=== PATIENT | male | born 1945 | race African-American/Black ===

== ENCOUNTER 2019-05-07 19:05 | Inpatient (IN) | payer OTHER ==
[~2019-05-07 19:05] MED LIST: Iopamidol-370 76% 500 ML 1 ML ONE
[2019-05-07 20:16] LABS: #Eosinphils 0.1 thou/uL (0.0-0.7); #Lymphocytes 1.1 thou/uL (1.20-3.40); #Monocytes 0.4 thou/uL (0.11-0.59); #Neutrophils 5.2 thou/uL (1.40-6.50); %Basophils 0.3 % (0.0-1.0); %Eosinophils 1.6 % (0.0-10.0); %Lymphocytes 15.3 % (21.0-51.0); %Monocytes 6.3 % (0.0-10.0); %Neutrophils 76.5 % (42.0-75.0); Hemoglobin 15.9 g/dL (14.0-18.0); Mean Corpuscular HGB CONC 31.3 g/dL (32.0-36.0); Mean Corpuscular Volume 92.5 fL (78.0-98.0); Platelet Count 189 thou/uL (130-400); RBC Distribution Width 13.7 % (11.5-14.5); Red Blood Cell (RBC) Count 5.48 mill/uL (4.70-6.10); White Blood Cell (WBC) Count 6.9 thou/uL (4.8-10.8)
[2019-05-07 20:33] LABS: ALT (SGPT) 11 U/L (8-55); AST (SGOT) 19 U/L (5-34); Albumin 3.9 g/dL (3.4-4.8); Alkaline Phosphatase 106 U/L (40-110); Anion Gap 12 mmol/L (10-20); BUN (Urea Nitrogen) 15 mg/dL (8.4-25.7); Bilirubin, Total 0.8 mg/dL (0.2-1.2); Calc. Creatinine Clearance 0 mL/min (70-130); Calcium 10.5 mg/dL (7.8-10.44); Carbon Dioxide 21 mmol/L (23-31); Chloride 107 mmol/L (98-107); Estimated GFR-MDRD 77; Glucose 109 mg/dL (83-110); Potassium 4.4 mmol/L (3.5-5.1); Protein, Total 7.9 g/dL (5.8-8.1); Sodium 136 mmol/L (136-145)
[2019-05-07] MEDS ORDERED: Ondansetron PF 4 MG/2 ML Vial ONE (20:55)
--- NOTE | 2019-05-07 21:21 | CT ---
CT Abdomen Pelvis W Con History: Right lower quadrant pain Comparison: None. Findings: Lung bases are clear. No pericardial effusion. Mild bilateral gynecomastia. Numerous hypodensities of the liver likely cysts. Prior cholecystectomy. There is a ovoid 6 mm lobule of fat within the pancreatic head. Multiple calcifications of the spleen which has a lobular contour. No hydronephrosis. Aortic contour is nonaneurysmal. There is a large right sided inguinal hernia containing sigmoid colo n with moderate distention of the large and small bowel. There is fluid within the right-sided hernia sac which has a relatively narrow neck. Small fluid containing left indirect inguinal hernia. Old compression deformity superior endplate of L3 with 40% superior endplate height loss of 20% anter ior vertebral body height loss. Mild demineralization. Impression: 1. Partially obstructive sigmoid colon containing right indirect inguinal hernia with fluid within th e hernia sac and subsequent large and small bowel dilatation. Surgical consultation is advised. 2. Numerous hypodensities within the liver suggestive of cysts. 3. Lobular contour of the spleen likely sequelae of prior trauma. 4. Small fluid containing left sided indirect inguinal hernia.
[2019-05-07 21:29] LABS: CKMB 3.8 ng/mL (0-6.6)
[2019-05-07] MEDS ORDERED: Morphine 4 MG/ML VIAL ONE (22:17)
[2019-05-07] MEDS ORDERED: Nitroglycerin 2% Ointment 1 INCH/1 GM Packet ONE (23:21)
--- NOTE | 2019-05-07 23:41 | RAD ---
XR Chest 1 View Portable History: Pain Comparison: None. Findings: Heart size is enlarged. Mild pulmonary edema. No pneumothorax. Likely trace effusions. No acute osseous abnormality. Occluded device projects over the left atrial appendage. There is contrast within the renal collecting systems. Impression: Findings of mild decompensated congestive heart failure.
[2019-05-08 00:16] LABS: CKMB 4.2 ng/mL (0-6.6)
[2019-05-08] MEDS ORDERED: Aspirin Chewable 81 MG TAB ONE (00:22)
[2019-05-08 03:23] LABS: Troponin I 0.029 ng/mL (< 0.028)
[2019-05-08] MEDS ORDERED: Morphine 2 MG/ML SYRINGE ONE (09:50)
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
[2019-05-08] MEDS ORDERED: Ondansetron PF 4 MG/2 ML Vial IVP PRN (12:14)
[2019-05-08 14:57] VITALS: BMI 23.6
[2019-05-08] MEDS ORDERED: Furosemide 20 MG/2 ML VIAL SLOW IVP SCH (19:00)
[2019-05-08] MEDS: Carvedilol 25 MG TAB PO SCH (20:09)
[2019-05-08] MEDS: Docusate 100 MG CAP PO SCH (20:09)
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
[2019-05-09 05:19] LABS: #Basophils 0.1 thou/uL (0.0-0.2); #Eosinphils 0.2 thou/uL (0.0-0.7); #Lymphocytes 1.2 thou/uL (1.20-3.40); #Monocytes 0.3 thou/uL (0.11-0.59); %Basophils 1.1 % (0.0-1.0); %Eosinophils 2.7 % (0.0-10.0); %Lymphocytes 21.1 % (21.0-51.0); %Monocytes 5.7 % (0.0-10.0); %Neutrophils 69.5 % (42.0-75.0); Hemoglobin 14.6 g/dL (14.0-18.0); Mean Corpuscular Hemoglobin 28.4 pg (27.0-31.0); Mean Corpuscular Volume 91.6 fL (78.0-98.0); Mean Platelet Volume 8.2 fL (7.4-10.4); Platelet Count 169 thou/uL (130-400); RBC Distribution Width 13.7 % (11.5-14.5); Red Blood Cell (RBC) Count 5.13 mill/uL (4.70-6.10); White Blood Cell (WBC) Count 5.8 thou/uL (4.8-10.8)
[2019-05-09 05:21] LABS: Anion Gap 10 mmol/L (10-20); BUN (Urea Nitrogen) 23 mg/dL (8.4-25.7); Calc. Creatinine Clearance 64 mL/min (70-130); Calcium 9.4 mg/dL (7.8-10.44); Carbon Dioxide 24 mmol/L (23-31); Chloride 107 mmol/L (98-107); Estimated GFR-MDRD 83; Glucose 82 mg/dL (83-110); Sodium 137 mmol/L (136-145)
[2019-05-09 05:26] LABS: Troponin I 0.028 ng/mL (< 0.028)
[2019-05-09] MEDS ORDERED: Furosemide 20 MG/2 ML VIAL SLOW IVP SCH (06:00)
[2019-05-09] MEDS ORDERED: Regadenoson 0.4 MG/5 ML SYRINGE ONE (09:01)
--- NOTE | 2019-05-09 09:12 | PRG ---
DATE OF SERVICE: 05/09/2019 SUBJECTIVE: Mr. Medellin is feeling well. No chest pain or pressure. OBJECTIVE: VITAL SIGNS: Blood pressure 178/106, pulse 60 and it is regular. LUNGS: Clear. CARDIAC: Normal S1, normal S2. ABDOMEN: Soft and nontender. The patient is completely unclear about any of his past history. He initially told me he had been in [place] in the hospital, then he later told me he had not and he said it is a few weeks ago, then a few years ago, then he says he is not sure if he has ever been there. The patient's troponin is 0.028. ASSESSMENT: 1. Increased troponin, probably demand ischemia. 2. May well have underlying coronary artery disease. 3. Hypertension. PLAN: 1. Stress test and echo. 2. Trying to get some records from [place] to see if that can be obtained. Job ID: [id number]
[2019-05-09] MEDS: Docusate 100 MG CAP PO SCH ×2 (09:18→20:46)
[2019-05-09] MEDS: Lisinopril 20 MG TAB PO SCH (09:18)
[2019-05-09] MEDS: Hydrochlorothiazide 25 MG TAB PO SCH (09:18)
[2019-05-09] MEDS: Aspirin 81 mg Enteric Coated Tablet PO SCH (09:19)
[2019-05-09] MEDS: Atorvastatin Calcium 40 MG TAB PO SCH (09:19)
[2019-05-09] MEDS: Amlodipine 5 MG TAB PO SCH (10:13)
[2019-05-09] MEDS: Clopidogrel Bisulfate 75 MG TAB PO SCH (10:13)
--- NOTE | 2019-05-09 15:04 | NM ---
EXAM: CARDIAC SPECT HISTORY: Chest pain, atrial fibrillation, hypertension, asthma, stroke. Preop evaluation TECHNIQUE: A myocardial perfusion scan was performed using the single isotope 1 day protocol with phu hnetium 99m sestamibi. [10 mCi] was injected intravenously for the rest exam followed by 30 mCi for the stress study. Pharmacologic stress with Lexiscan was monitored and interpreted by Dr. Weston FINDINGS: Homogeneous tracer distribution is seen in the myocardial segments on stress and rest image s without fixed or reversible defects. Gated SPECT LVEF: 73% Wall motion exam: Normal IMPRESSION: Normal myocardial perfusion scan
[2019-05-09] MEDS: Carvedilol 25 MG TAB PO SCH ×2 (15:20→20:46)
[2019-05-09] MEDS ORDERED: CEFAZOLIN 2 GM in Premix Bag 1 BAG IVPB SCH (17:00)
--- NOTE | 2019-05-09 17:38 | PDOC.HOSPP ---
- Subjective Encounter Date: 05/09/19 Encounter Time: 14:00 Subjective: The patient continues to have intermittent spasms in inguinal area radiating to abdomen. Also describes a hammer like - Objective Vital Signs & Weight: Vital Signs (12 hours) Temp Pulse Resp BP Pulse Ox 05/09/19 14:46 97.5 F L 63 20 157/82 H 99 05/09/19 08:55 98.4 F 57 L 12 165/94 H 99 Weight Weight 166 lb 14.4 oz I&O: 05/08/19 05/09/19 05/10/19 06:59 06:59 06:59 Intake Total 694 480 Output Total 5823 825 Balance -906 -345 Result Diagrams: 05/09/19 04:45 05/09/19 04:45 Hospitalist ROS - Medication Medications: Active Medications Generic Name Dose Route Start Last Admin Trade Name Freq PRN Reason Stop Dose Admin Amlodipine Besylate 5 mg 05/09/19 09:00 05/09/19 10:13 Norvasc PO 5 mg DAILY MARTIN Administration Aspirin 81 mg 05/09/19 09:00 05/09/19 09:19 Ecotrin PO 81 mg DAILY MARTIN Administration Atorvastatin Calcium 40 mg 05/09/19 09:00 05/09/19 09:19 Lipitor PO 40 mg DAILY MARTIN Administration Carvedilol 12.5 mg 05/08/19 21:00 05/09/19 15:20 Coreg PO 12.5 mg BID MARTIN Administration Clopidogrel Bisulfate 75 mg 05/09/19 09:00 05/09/19 10:13 Plavix PO 75 mg DAILY MARTIN Administration Docusate Sodium 100 mg 05/08/19 21:00 05/09/19 09:18 Colace PO 100 mg BID MARTIN Administration Hydrochlorothiazide 12.5 mg 05/09/19 09:00 05/09/19 09:18 Hydrochlorothiazide PO 12.5 mg DAILY MARTIN Administration Lisinopril 40 mg 05/09/19 09:00 05/09/19 09:18 Zestril PO 40 mg DAILY MARTIN Administration Pantoprazole Sodium 40 mg 05/09/19 09:00 05/09/19 09:18 Protonix PO 40 mg DAILY MARTIN Administration - Exam General Appearance: NAD, awake alert Eye: PERRL, anicteric sclera Neck: no JVD Heart: RRR Respiratory: CTAB, normal chest expansion Gastrointestinal: non-distended Gastrointestinal - other findings: ruq and rlq tenderness Extremities: no cyanosis, no clubbing, no edema Neurological: cranial nerve grossly intact, no focal deficits, no new deficit Musculoskeletal: normal tone, normal strength Hosp A/P - Plan this is 73 year old who presented with abd painfound to have inguinal hernia Incarcerated inguinal hernia Elevated troponin CAD Hypertension - stress test negative - will consult general surgery for hernia repair - continue home meds - resume plavix per cardiology but will hold if necessary for surgery
[2019-05-09] MEDS: Morphine 2 MG/ML SYRINGE SLOW IVP PRN (20:46)
--- NOTE | 2019-05-10 02:14 | CON ---
DATE OF CONSULTATION: HISTORY OF PRESENT ILLNESS: Hector Medellin is a 73-year-old black male, incarcerated for 7 years and anticipates being released later this year. He has long history of tobacco abuse; of course, tobacco free for the last 7 years. He has noticed a right inguinal hernia for several years. He was incarcerated, presented to the emergency room with abdominal pain. CAT scan demonstrated incarceration with a suggestion of a left inguinal hernia, although he is asymptomatic on the left. His incarcerated hernia in the right was reduced. The patient was admitted, underwent cardiac stress test, which was unremarkable. I have been consulted regarding right inguinal hernia repair. Plan is to perform Tuesday robot/laparoscopic mesh repair of right inguinal hernia and evaluation of left and repair of that if appropriate. Exam today reveals right inguinal hernia, but no definite left inguinal hernia on exam. He is asymptomatic on the left. ALLERGIES: NONE. SOCIAL HISTORY: Tobacco none (incarcerated). MEDICATIONS: In retirement; 1. Omeprazole. 2. Lisinopril/hydrochlorothiazide. 3. Colace. 4. Plavix. 5. Toradol. 6. Atorvastatin. 7. Aspirin. PAST SURGICAL HISTORY: Right clavicle surgery. PAST MEDICAL HISTORY: Hypertension, history of stroke, history of myocardial infarction. This hospitalization, cardiac stress test was unremarkable. Dr. Bello has seen him. REVIEW OF SYSTEMS: Noncontributory. PHYSICAL EXAMINATION: VITAL SIGNS: Height 6 feet 1 inches, weight 166 pounds, 22 BMI, temperature 97.5, pulse 63, blood pressure 157/82. HEAD, EARS, EYES, NOSE AND THROAT: Unremarkable. LUNGS: Clear to auscultation. CARDIAC: Regular rate and rhythm without murmur or gallop. ABDOMEN: Soft and nontender. On standing, right inguinal hernia evident. Testicles are normal. Left groin without evident hernia on exam, although exam is difficult and equivocal. EXTREMITIES: Unremarkable. LABORATORY DATA: White count 5, hemoglobin 14. Basic metabolic profile normal. ASSESSMENT AND PLAN: 1. Elevated troponins on admission. Cardiac stress test negative. He has been seen by Dr. Bello. He is cleared for surgery. Risks of infection, bleeding, reoperation, open hernia repair, recurrence of hernia discussed, questions answered. 2. Right inguinal hernia. Plan robot/laparoscopic mesh repair. He consents. Questions answered. 3. Hypertension. 4. History of stroke. Job ID: [id number]
[2019-05-10 05:45] LABS: Troponin I 0.016 ng/mL (< 0.028)
[2019-05-10] MEDS: Amlodipine 5 MG TAB PO SCH (08:02)
[2019-05-10] MEDS: Hydrochlorothiazide 25 MG TAB PO SCH (08:02)
[2019-05-10] MEDS: Docusate 100 MG CAP PO SCH ×2 (08:02→20:02)
[2019-05-10] MEDS: Lisinopril 20 MG TAB PO SCH (08:02)
[2019-05-10] MEDS: Aspirin 81 mg Enteric Coated Tablet PO SCH (08:05)
[2019-05-10] MEDS: Carvedilol 25 MG TAB PO SCH ×2 (08:05→20:02)
[2019-05-10] MEDS: Atorvastatin Calcium 40 MG TAB PO SCH (08:05)
[2019-05-10] MEDS: Clopidogrel Bisulfate 75 MG TAB PO SCH (08:15)
[2019-05-10] MEDS: Morphine 2 MG/ML SYRINGE SLOW IVP PRN (12:47)
--- NOTE | 2019-05-10 14:52 | PDOC.HOSPP ---
- Subjective Encounter Date: 05/10/19 Encounter Time: 13:00 Subjective: The patient is doing well. He still gets some intermittent spasms in his right area. Has some pain with eating but overall he tolerates a diet. - Objective Vital Signs & Weight: Vital Signs (12 hours) Temp Pulse Resp BP BP Pulse Ox 05/10/19 11:08 98.0 F 57 L 16 122/82 97 05/10/19 08:02 57 L 150/97 H 05/10/19 08:00 98.5 F 57 L 14 150/97 H 97 05/10/19 03:12 98.1 F 60 16 120/74 97 Weight Weight 166 lb 14.4 oz I&O: 05/09/19 05/10/19 05/11/19 06:59 06:59 06:59 Intake Total 694 1120 Output Total 1600 1225 Balance -906 -105 Result Diagrams: 05/09/19 04:45 05/09/19 04:45 Hospitalist ROS - Review of Systems Constitutional: denies: fever, chills - Medication Medications: Active Medications Generic Name Dose Route Start Last Admin Trade Name Freq PRN Reason Stop Dose Admin Amlodipine Besylate 5 mg 05/09/19 09:00 05/10/19 08:02 Norvasc PO 5 mg DAILY MARTIN Administration Aspirin 81 mg 05/09/19 09:00 05/10/19 08:05 Ecotrin PO 81 mg DAILY MARTIN Administration Atorvastatin Calcium 40 mg 05/09/19 09:00 05/10/19 08:05 Lipitor PO 40 mg DAILY MARTIN Administration Carvedilol 12.5 mg 05/08/19 21:00 05/10/19 08:05 Coreg PO 12.5 mg BID MARTIN Administration Clopidogrel Bisulfate 75 mg 05/09/19 09:00 05/10/19 08:15 Plavix PO Not Given DAILY MARTIN Docusate Sodium 100 mg 05/08/19 21:00 05/10/19 08:02 Colace PO 100 mg BID MARTIN Administration Hydrochlorothiazide 12.5 mg 05/09/19 09:00 05/10/19 08:02 Hydrochlorothiazide PO 12.5 mg DAILY MARTIN Administration Lisinopril 40 mg 05/09/19 09:00 05/10/19 08:02 Zestril PO 40 mg DAILY MARTIN Administration Morphine Sulfate 2 mg 05/08/19 12:15 02/06/20 12:47 Morphine SLOW IVP 2 mg Q4H PRN Administration Moderate Pain (4-6) Pantoprazole Sodium 40 mg 05/09/19 09:00 05/10/19 08:02 Protonix PO 40 mg DAILY MARTIN Administration - Exam General Appearance: NAD, awake alert Eye: PERRL, anicteric sclera ENT: normocephalic atraumatic, no oropharyngeal lesions Neck: supple, no JVD Heart: RRR, no murmur, no gallops, no rubs Respiratory: CTAB, no wheezes, no rales, no ronchi Gastrointestinal: soft, non-tender, non-distended Gastrointestinal - other findings: right inguinal hernia noted Extremities: no cyanosis, no clubbing, no edema Skin: normal turgor, no lesions, no rashes Neurological: cranial nerve grossly intact, normal sensation to touch, no focal deficits, no new deficit Hosp A/P - Plan this is 73 year old who presented with abd painfound to have inguinal hernia #Incarcerated inguinal hernia #Elevated troponin #CAD #Hypertension - stress test negative - general surgery consulted, will plan for hernia repair tomorrow - continue home meds - will continue plavix unless records from [place] show that his stent is older than a jack
[2019-05-10] MEDS ORDERED: CEFAZOLIN 2 GM in Premix Bag 1 BAG IVPB SCH (18:30)
[2019-05-10] MEDS: Gabapentin 300 MG CAP PO SCH (20:02)
[2019-05-11 05:11] LABS: Hemoglobin 15.2 g/dL (14.0-18.0); Mean Corpuscular HGB CONC 30.3 g/dL (32.0-36.0); Mean Corpuscular Hemoglobin 27.5 pg (27.0-31.0); Mean Platelet Volume 8.3 fL (7.4-10.4); Platelet Count 175 thou/uL (130-400); RBC Distribution Width 13.6 % (11.5-14.5); Red Blood Cell (RBC) Count 5.51 mill/uL (4.70-6.10); White Blood Cell (WBC) Count 4.7 thou/uL (4.8-10.8)
[2019-05-11 05:36] LABS: Anion Gap 10 mmol/L (10-20); BUN (Urea Nitrogen) 27 mg/dL (8.4-25.7); Calc. Creatinine Clearance 64 mL/min (70-130); Calcium 9.7 mg/dL (7.8-10.44); Carbon Dioxide 22 mmol/L (23-31); Chloride 106 mmol/L (98-107); Estimated GFR-MDRD 82; Glucose 124 mg/dL (83-110); Potassium 3.4 mmol/L (3.5-5.1); Sodium 135 mmol/L (136-145)
[2019-05-11] MEDS: Carvedilol 25 MG TAB PO SCH ×2 (06:18→21:13)
[2019-05-11] MEDS: Potassium Chloride 10 MEQ/100 ML PREMIX BAG IVPB SCH ×2 (08:47→10:30)
[2019-05-11] MEDS: Aspirin 81 mg Enteric Coated Tablet PO SCH (08:57)
[2019-05-11] MEDS: Clopidogrel Bisulfate 75 MG TAB PO SCH (08:57)
[2019-05-11] MEDS: Gabapentin 300 MG CAP PO SCH ×2 (08:58→21:13)
[2019-05-11] MEDS: Docusate 100 MG CAP PO SCH ×2 (08:58→21:13)
[2019-05-11] MEDS ORDERED: Ketorolac Tromethamine 30 MG/ML VIAL IVP ONE (09:00)
[2019-05-11] MEDS ORDERED: Glycopyrrolate 0.2 MG/ML 5 ML SYRINGE ONE (10:18)
[2019-05-11] MEDS ORDERED: Rocuronium Bromide 10 MG/ML (10ML VIAL) ONE (10:18)
[2019-05-11] MEDS ORDERED: PHENYLEPHRINE-NS 100 MCG/ML 10 ML SYRINGE ONE (10:18)
[2019-05-11] MEDS ORDERED: PROPOFOL 200 MG/20 ML VIAL ONE (10:18)
[2019-05-11] MEDS ORDERED: Lidocaine 1% PF 5 ML VIAL ONE (10:18)
[2019-05-11] MEDS ORDERED: EPHEDRINE 25 MG/5 ML SYRINGE ONE (10:18)
[2019-05-11] MEDS ORDERED: Acetaminophen 500 MG TAB ONE (10:25)
[2019-05-11] MEDS ORDERED: Gabapentin 300 MG CAP ONE (10:25)
[2019-05-11] MEDS ORDERED: Ketorolac Tromethamine 30 MG/ML VIAL ONE (10:25)
[2019-05-11] MEDS ORDERED: Bupivacaine 0.25% HCL 30 ML VIAL ONE (12:41)
[2019-05-11] MEDS ORDERED: Lidocaine 1% w/Epinephrine 1:100K 20 ML VIAL ONE (12:41)
[2019-05-11] MEDS ORDERED: Phenylephrine HCL 10 MG/ML VIAL ONE (12:46)
[2019-05-11] MEDS ORDERED: Fentanyl 100 MCG/2 ML VIAL ONE ×3 (12:46→15:41)
[2019-05-11] MEDS ORDERED: Ibuprofen 600 MG TAB PO PRN (15:11)
[2019-05-11] MEDS ORDERED: Promethazine HCl 25 MG/ML VIAL IM PRN (15:19)
[2019-05-11] MEDS ORDERED: Labetalol HCl 100 MG/20 ML VIAL ONE (15:19)
[2019-05-11] MEDS ORDERED: Ondansetron HCl/PF 4 MG/2 ML Vial IVP PRN (15:19)
[2019-05-11] MEDS ORDERED: Promethazine HCl 25 MG/ML VIAL SLOW IVP PRN (15:19)
[2019-05-11] MEDS ORDERED: Labetalol HCl 100 MG/20 ML VIAL SLOW IVP PRN (15:20)
--- NOTE | 2019-05-11 15:59 | OP ---
DATE OF PROCEDURE: 05/11/2019 PREOPERATIVE DIAGNOSES: 1. Bilateral inguinal hernias. 2. Right inguinal hernia, incarcerated, status post reduction. 3. Cardiac clearance by Sound. POSTOPERATIVE DIAGNOSES: 1. Bilateral inguinal hernias. 2. Right inguinal hernia, incarcerated, status post reduction. 3. Cardiac clearance by Sound. PROCEDURES PERFORMED: Laparoscopic robot bilateral inguinal hernia repairs, 3D Bard mesh large with a very large right inguinal hernia and a smaller left inguinal hernia. ANESTHESIA: General, local with 0.5% Marcaine 30 mL mixed with 1% Xylocaine with epinephrine 20 mL. DESCRIPTION OF PROCEDURE: The patient was taken to the operating room, where under general anesthesia, a Franklin catheter was placed at the beginning of the procedure and removed at the end. Abdomen was prepared with ChloraPrep and draped in routine fashion. Local anesthetic was infiltrated in the skin and subcutaneous tissue at each port site. Left paramedian incision made above the umbilicus, carried down to skin and subcutaneous tissue, and pneumoperitoneum to 15 mmHg obtained with Veress needle, replaced with a 12 balloon port, and a videolaparoscope inserted. Bilateral far lateral skin incision was made, 8 mm port was placed. Bilateral inguinal hernia repairs noted after robot was docked. Robotic bilateral inguinal hernia repairs undertaken. Peritoneal flap was dissected free on both sides, beginning laterally into the anterior superior iliac spine, directed medially, dissecting both the right and left groin/pelvis free of peritoneum, dissecting the very large hernia sac on the right, free from the cord structures. Hernia sac on the left was dissected free from the cord structures. Michael ligament identified and cord structures exposed for least 8 cm bilaterally. Good hemostasis noted. Mesh 3D Bard Max large inserted for the right side and then for the left side. Mesh was positioned and both secured to Michael ligament medially with interrupted sutures of 2-0 Vicryl and to the abdominal wall lateral to the inferior epigastric vessels with 2-0 Vicryl. Once the mesh was properly positioned, hemostasis noted. Sponge and needle counts were correct. Peritoneum closed with continuous suture of 3-0 STRATAFIX. Once this was accomplished, good hemostasis noted. [place] were removed. Counts were correct. All insufflation deflated. Franklin catheter removed. All instruments were removed. All skin incisions were approximated with subdermal 4-0 Monocryl on the left paramedian incision fascia. Anterior rectus closed with [id number] suture 0 Vicryl UR needle. The patient tolerated the procedure well. Job ID: [id number]
[2019-05-11] MEDS: Hydrochlorothiazide 25 MG TAB PO SCH (17:39)
[2019-05-11] MEDS: Atorvastatin Calcium 40 MG TAB PO SCH (17:39)
[2019-05-11] MEDS: Lisinopril 20 MG TAB PO SCH (17:39)
[2019-05-11] MEDS: Amlodipine 5 MG TAB PO SCH (17:39)
--- NOTE | 2019-05-11 17:41 | PDOC.HOSPP ---
- Subjective Encounter Date: 05/11/19 Encounter Time: 16:30 Subjective: The patient is drowsy. He is s/p hernia repair. He has some pain but no other complaints. - Objective Vital Signs & Weight: Vital Signs (12 hours) Temp Pulse Resp BP Pulse Ox 05/11/19 16:35 97.7 F 52 L 20 118/78 98 05/11/19 08:47 95 05/11/19 07:28 97.8 F 65 16 129/83 95 Weight Weight 166 lb 14.4 oz I&O: 05/10/19 05/11/19 05/12/19 06:59 06:59 06:59 Intake Total 1120 720 Output Total 1225 1400 Balance -105 -680 Result Diagrams: 05/11/19 04:48 05/11/19 04:48 Hospitalist ROS - Review of Systems Gastrointestinal: denies: nausea, vomiting, diarrhea - Medication Medications: Active Medications Generic Name Dose Route Start Last Admin Trade Name Freq PRN Reason Stop Dose Admin Amlodipine Besylate 5 mg 05/09/19 09:00 05/10/19 08:02 Norvasc PO 5 mg DAILY MARTIN Administration Aspirin 81 mg 05/09/19 09:00 05/11/19 08:57 Ecotrin PO Not Given DAILY [facility] Atorvastatin Calcium 40 mg 05/09/19 09:00 05/10/19 08:05 Lipitor PO 40 mg DAILY MARTIN Administration Carvedilol 12.5 mg 05/08/19 21:00 05/11/19 06:18 Coreg PO 12.5 mg BID MARTIN Administration Clopidogrel Bisulfate 75 mg 05/09/19 09:00 05/11/19 08:57 Plavix PO Not Given DAILY [facility] Docusate Sodium 100 mg 05/08/19 21:00 05/11/19 08:58 Colace PO Not Given BID [facility] Gabapentin 300 mg 05/10/19 21:00 05/11/19 08:58 Neurontin PO Not Given BID [facility] Hydrochlorothiazide 12.5 mg 05/09/19 09:00 05/10/19 08:02 Hydrochlorothiazide PO 12.5 mg DAILY MARTIN Administration Lisinopril 40 mg 05/09/19 09:00 05/10/19 08:02 Zestril PO 40 mg DAILY MARTIN Administration Morphine Sulfate 2 mg 05/08/19 12:15 02/06/20 12:47 Morphine SLOW IVP 2 mg Q4H PRN Administration Moderate Pain (4-6) Pantoprazole Sodium 40 mg 05/09/19 09:00 05/10/19 08:02 Protonix PO 40 mg DAILY MARTNI Administration - Exam General Appearance: NAD, awake alert Eye: PERRL, anicteric sclera ENT: normocephalic atraumatic, no oropharyngeal lesions Neck: supple, symmetric, no JVD, no thyromegaly Heart: RRR, no murmur, no gallops, no rubs Respiratory: CTAB, no wheezes, no rales, no ronchi Gastrointestinal: soft Gastrointestinal - other findings: surgical scar present in mid abdomen Extremities: no cyanosis, no clubbing, no edema Skin: normal turgor, no lesions, no rashes Hosp A/P - Plan this is 73 year old who presented with abd painfound to have inguinal hernia, s/ p repair #Incarcerated inguinal hernia - - s/p reduction of right inguinal hernia and bilateral inguinal hernia repairs POD0 - on cefazolin for prophylaxis - pain meds prn #Elevated troponin #CAD #Hypertension - stress test negative - obtain records from [place] with heart history - on aspirin, plavix, lisinopril, HCTZ, amlodipine DVt prophylaxis: resume when okay with surgery Code status: full code
[2019-05-11] MEDS: Acetaminophen 500 MG TAB PO SCH (18:36)
[2019-05-11] MEDS: traMADol HCl 50 MG TAB PO PRN (21:13)
[2019-05-12] MEDS: Acetaminophen 500 MG TAB PO SCH ×4 (00:18→17:58)
[2019-05-12] MEDS ORDERED: Sodium Chloride 0.9% 500 ML IV SCH ×5 (02:15→11:30)
[2019-05-12] MEDS ORDERED: Sodium Chloride 0.9% 500 ML IVPB SCH (02:45)
[2019-05-12] MEDS: Docusate 100 MG CAP PO SCH ×2 (08:35→20:31)
[2019-05-12] MEDS: Atorvastatin Calcium 40 MG TAB PO SCH (08:36)
[2019-05-12] MEDS: Carvedilol 25 MG TAB PO SCH (08:36)
[2019-05-12] MEDS: Clopidogrel Bisulfate 75 MG TAB PO SCH (08:36)
[2019-05-12] MEDS: Hydrochlorothiazide 25 MG TAB PO SCH (08:36)
[2019-05-12] MEDS: Aspirin 81 mg Enteric Coated Tablet PO SCH (08:36)
[2019-05-12] MEDS: Gabapentin 300 MG CAP PO SCH ×2 (08:36→20:31)
[2019-05-12] MEDS ORDERED: Lisinopril 20 MG TAB PO SCH (09:00)
[2019-05-12] MEDS: Sodium Chloride 0.45% 1,000 ML IV SCH ×2 (11:33→22:35)
--- NOTE | 2019-05-12 11:33 | PDOC.HOSPP ---
- Subjective Encounter Date: 05/12/19 Subjective: Feels "pretty good." However, says he got up and took a few steps and "got drunk". Clarified that he felt lightheaded. OK now. Requests a walker. Says he uses one normally. - Objective Vital Signs & Weight: Vital Signs (12 hours) Temp Pulse Resp BP Pulse Ox 05/12/19 11:07 98.0 F 69 16 86/54 L 99 05/12/19 07:31 97.9 F 76 16 102/69 100 05/12/19 04:09 97.8 F 62 16 98/68 100 05/12/19 00:04 97.6 F 55 L 16 107/69 98 Weight Weight 166 lb 14.4 oz I&O: 05/11/19 05/12/19 05/13/19 06:59 06:59 06:59 Intake Total 720 1900 Output Total 1400 125 Balance -680 1775 Result Diagrams: 05/11/19 04:48 05/11/19 04:48 Hospitalist ROS - Medication Medications: Active Medications Generic Name Dose Route Start Last Admin Trade Name Dionq PRN Reason Stop Dose Admin Acetaminophen 1,000 mg 05/11/19 18:00 05/12/19 06:11 Tylenol PO 1,000 mg Q6HR MARTIN Administration Aspirin 81 mg 05/09/19 09:00 05/12/19 08:36 Ecotrin PO 81 mg DAILY MARTIN Administration Atorvastatin Calcium 40 mg 05/09/19 09:00 05/12/19 08:36 Lipitor PO 40 mg DAILY MARTIN Administration Carvedilol 12.5 mg 05/08/19 21:00 05/12/19 08:36 Coreg PO 12.5 mg BID MARTIN Administration Clopidogrel Bisulfate 75 mg 05/09/19 09:00 05/12/19 08:36 Plavix PO 75 mg DAILY MARTIN Administration Docusate Sodium 100 mg 05/08/19 21:00 05/12/19 08:35 Colace PO 100 mg BID MARTIN Administration Gabapentin 300 mg 05/10/19 21:00 05/12/19 08:36 Neurontin PO 300 mg BID MARTIN Administration Hydrochlorothiazide 12.5 mg 05/09/19 09:00 05/12/19 08:36 Hydrochlorothiazide PO 12.5 mg DAILY MARTIN Administration Lisinopril 20 mg 05/12/19 09:00 05/12/19 08:35 Zestril PO Not Given DAILY [facility] Morphine Sulfate 2 mg 05/08/19 12:15 05/10/19 12:47 Morphine SLOW IVP 2 mg Q4H PRN Administration Moderate Pain (4-6) Pantoprazole Sodium 40 mg 05/09/19 09:00 05/12/19 08:36 Protonix PO 40 mg DAILY MARTIN Administration Tramadol HCl 50 mg 05/11/19 15:11 05/11/19 21:13 Ultram PO 50 mg Q4H PRN Administration Moderate Pain (4-6) - Exam General Appearance: NAD, awake alert Eye: PERRL, anicteric sclera ENT: no oropharyngeal lesions Neck: supple, symmetric, no JVD, no thyromegaly, no lymphadenopathy, no carotid bruit Heart: RRR, no murmur, no gallops, no rubs Respiratory: CTAB, no wheezes, no rales, no ronchi, normal chest expansion, no tachypnea, normal percussion Gastrointestinal: soft, non-tender, non-distended, normal bowel sounds, no palpable masses, no hepatomegaly, no splenomegaly, no bruit Extremities: no cyanosis, no clubbing, no edema Skin: normal turgor Psychiatric: normal affect, normal behavior, A&O x 3 Hosp A/P (1) Unilateral inguinal hernia with obstruction and without gangrene Code(s): K40.30 - UNIL INGUINAL HERNIA, W OBST, W/O GANGR, NOT SPCF RECUR Status: Acute (2) Hypotension Status: Acute (3) HTN (hypertension) Code(s): I10 - ESSENTIAL (PRIMARY) HYPERTENSION Status: Acute (4) Myocardial infarction Code(s): I21.9 - ACUTE MYOCARDIAL INFARCTION, UNSPECIFIED Status: Acute Qualifiers: Myocardial infarction type: type 2 Qualified Code(s): I21.A1 - Myocardial infarction type 2 (5) CAD (coronary artery disease) Code(s): I25.10 - ATHSCL HEART DISEASE OF [place] CORONARY ARTERY W/O ANG PCTRS Status: Acute - Plan Hypotensive this morning. Had initial HTN uncontrolled and amlodipine added to the Lisinopril and Coreg. DC'd the amlopipine and held the lisinopril. Gave the Coreg when BP was borderline, but lower now. IVF bolus and maintenance. Had normal echo, so should be able to tolerate fluids. Will get a walker for the patient. PT consult. Doing well post op.
[2019-05-13] MEDS: Acetaminophen 500 MG TAB PO SCH ×5 (00:30→23:11)
[2019-05-13 09:20] LABS: Anion Gap 9 mmol/L (10-20); BUN (Urea Nitrogen) 26 mg/dL (8.4-25.7); Calc. Creatinine Clearance 70 mL/min (70-130); Calcium 8.6 mg/dL (7.8-10.44); Carbon Dioxide 23 mmol/L (23-31); Chloride 107 mmol/L (98-107); Estimated GFR-MDRD Greater than 90; Glucose 134 mg/dL (83-110); Potassium 3.5 mmol/L (3.5-5.1); Sodium 135 mmol/L (136-145)
[2019-05-13] MEDS: Sodium Chloride 0.45% 1,000 ML IV SCH (10:38)
[2019-05-13] MEDS: Hydrochlorothiazide 25 MG TAB PO SCH (10:39)
[2019-05-13] MEDS: Atorvastatin Calcium 40 MG TAB PO SCH (10:39)
[2019-05-13] MEDS: Clopidogrel Bisulfate 75 MG TAB PO SCH (10:39)
[2019-05-13] MEDS: Gabapentin 300 MG CAP PO SCH ×2 (10:39→20:40)
[2019-05-13] MEDS: Aspirin 81 mg Enteric Coated Tablet PO SCH (10:40)
[2019-05-13] MEDS: Docusate 100 MG CAP PO SCH ×2 (10:40→20:40)
[2019-05-13] MEDS: Acetaminophen/Codeine 30-300mg Tablet PO PRN ×2 (10:46→17:50)
[2019-05-13] MEDS ORDERED: Sodium Chloride 0.9% 500 ML IV SCH (12:00)
[2019-05-13] MEDS: Sodium Chloride 0.9% 1,000 ML IV SCH (17:48)
[2019-05-14] MEDS: Acetaminophen 500 MG TAB PO SCH ×3 (05:23→17:32)
[2019-05-14] MEDS: Sodium Chloride 0.9% 1,000 ML IV SCH (05:24)
[2019-05-14] MEDS: Docusate 100 MG CAP PO SCH (08:00)
[2019-05-14] MEDS: traMADol HCl 50 MG TAB PO PRN (08:00)
[2019-05-14] MEDS: Clopidogrel Bisulfate 75 MG TAB PO SCH (08:00)
[2019-05-14] MEDS: Gabapentin 300 MG CAP PO SCH (08:00)
[2019-05-14] MEDS: Hydrochlorothiazide 25 MG TAB PO SCH (08:00)
[2019-05-14] MEDS: Aspirin 81 mg Enteric Coated Tablet PO SCH (08:00)
[2019-05-14] MEDS: Atorvastatin Calcium 40 MG TAB PO SCH (08:00)
[2019-05-14 15:59] VITALS: TEMP 98.5
[2019-05-14 16:05] VITALS: BP 142/82
--- NOTE | 2019-05-15 13:40 | DIS ---
DATE OF ADMISSION: 05/07/2019 DATE OF DISCHARGE: 05/14/2019 DISCHARGE DIAGNOSES: 1. Incarcerated right inguinal hernia. 2. [id number] myocardial infarction, type 2. 3. History of coronary artery disease. 4. Left ventricular hypertrophy. 5. Hypertension. 6. Orthostatic hypotension. HISTORY OF PRESENT ILLNESS: This patient is a 73-year-old male, who is incarcerated at [facility]. He presented to the emergency department with a complaint of new onset sharp abdominal pain. The patient had been aware that he had a right inguinal hernia, but it had not given any problems before. The patient had a CT scan of the abdomen revealing incarcerated right inguinal hernia. Given his history, he was seen by Cardiology for clearance for surgery. He underwent an echocardiogram, which revealed left ventricular hypertrophy and a nuclear medicine stress test, which was unremarkable. With clearance, the patient then underwent surgery to have repair of the right inguinal hernia with obstruction. The patient recovered well. However, subsequently he had some orthostatic hypotension. He had been on blood pressure medications prior to his admission and had some amlodipine added because of initial elevated blood pressures. These were held and the patient received some additional IV fluids. The following day, he still remained a bit symptomatic and still had mild orthostatic hypotension. Therefore, he was given additional fluids an additional day on the day of discharge, and was not significantly orthostatic. PHYSICAL EXAMINATION: VITAL SIGNS: On the day of discharge, temperature is 98.5, pulse 62, respirations 18, O2 saturation 99% on room air. BP was 142/82. GENERAL: He was awake and alert. HEART: Regular rate and rhythm. LUNGS: Clear bilaterally. ABDOMEN: Benign. EXTREMITIES: Had no significant edema. DISPOSITION: The patient is discharged back to the care of [facility]. I believe he is going to [facility] per managed care. DISCHARGE MEDICATIONS: Include; 1. Omeprazole 40 mg daily. 2. Plavix 75 mg daily. 3. Lipitor 40 mg daily. 4. Aspirin 81 mg daily. 5. Docusate 100 mg b.i.d. His lisinopril, hydrochlorothiazide and carvedilol are being held due to his orthostasis, but can be resumed as his blood pressure suggests the need. ACTIVITY: As tolerated. He has to lift nothing over 25 to 30 pounds for 1 week. DIET: He is on a heart healthy diet. FOLLOWUP: He can return to the hospital at anytime he has the need to do so. Otherwise, followup will be within the [facility] system and will have an appointment scheduled for Dr. Jeffers in 2 to 3 weeks. Total time in discharge activities was 31 minutes. Job ID: [id number]
== END 2019-05-14 19:06 | DRG 350 ==
LOC: ERS 19:05 → EEVIPCON 19:05 → ERHOLD 23:52 → OBSVTOIN 23:52 → 2SW 05-08 14:35 → SURG B 05-09 19:57
PROVIDERS: ADMIT Family Medicine; ATTEND Family Medicine
PROC: 0YUA4JZ Supplement Bilateral Inguinal Region with Synthetic Substitute, Percutaneous Endoscopic Approach (ICD-10-PCS; principal; 2019-05-11)
PROC: 8E0W4CZ Robotic Assisted Procedure of Trunk Region, Percutaneous Endoscopic Approach (ICD-10-PCS; 2019-05-11)
DX: K40.00 Bilateral inguinal hernia, with obstruction, without gangrene, not specified as recurrent (principal); I21.A1 Myocardial infarction type 2; I25.10 Atherosclerotic heart disease of native coronary artery without angina pectoris; I10 Essential (primary) hypertension; K21.9 Gastro-esophageal reflux disease without esophagitis; J45.909 Unspecified asthma, uncomplicated; Z96.649 Presence of unspecified artificial hip joint; K76.89 Other specified diseases of liver; I95.9 Hypotension, unspecified; Z82.3 Family history of stroke; Z87.891 Personal history of nicotine dependence; Z98.890 Other specified postprocedural states; Z82.49 Family history of ischemic heart disease and other diseases of the circulatory system; Z86.73 Personal history of transient ischemic attack (TIA), and cerebral infarction without residual deficits
CPT/HCPCS: 36415; 71045; 74177; 78452; 80048; 80053; 82553; 83690; 83880; 84484; 85025; 85027; 93005; 93017; 93306; 94760; 96361; 96374; 96375; 96376; A9500; C1781; J0690; J1885; J1940; J2001; J2270; J2370; J2405; J2704; J2785; J3010; J3480; J7050; Q9967; S0020